=== PATIENT | female | born 1995 | race Caucasian/White ===

== ENCOUNTER 2018-06-14 16:31 | Emergency (ER) | payer BC ==
[2018-06-14] MEDS ORDERED: ONDANSETRON 4 MG/2 ML VIAL IVP ONE ×2 (17:55→19:32)
[2018-06-14] MEDS ORDERED: KETOROLAC 30 MG/1 ML SDV IVP ONE (17:55)
[2018-06-14] MEDS ORDERED: NS 1,000 ML IV ONE (17:55)
--- NOTE | 2018-06-14 18:50 | EDPHY ---
H & P Stated Complaint: luq sharp abd pain/n/diarrhea just got back from [place] Time Seen by Provider: 06/14/18 17:55 HPI/ROS: CHIEF COMPLAINT: Left upper quadrant pain HISTORY OF PRESENT ILLNESS: 22-year-old female presents with left upper quadrant pain. Onset of sharp and stabbing left upper quadrant pain yesterday. The pain is moderate and is associated with nausea. She just return to [place] and had 1 day of diarrhea while in [place]. No current diarrhea and no fever. She also has an upper respiratory infection, including stuffy nose, sore throat and cough. REVIEW OF SYSTEMS: complete 10 point ROS reviewed and is negative except for the noted elements in the HPI - Personal History LMP (Females 10-55): Extended Cycle BCP/Inj Current Tetanus Diphtheria and Acellular Pertussis (TDAP): Yes - Medical/Surgical History Hx Asthma: No Hx Chronic Respiratory Disease: No Hx Diabetes: No Hx Cardiac Disease: No Hx Renal Disease: No Hx Cirrhosis: No Hx Alcoholism: No Hx HIV/AIDS: No Hx Splenectomy or Spleen Trauma: No Other PMH: denies - Social History Smoking Status: Current every day smoker Alcohol Use: Sober Drug Use: None - Physical Exam Exam: General Appearance: Alert, pleasant Eyes: Pupils equal and round, no conjunctival pallor ENT, Mouth: Mucous membranes moist Neck: Normal inspection Respiratory: Lungs are clear to auscultation Cardiovascular: Regular rate and rhythm Gastrointestinal: Abdomen is soft, left upper quadrant tenderness, no peritoneal signs Neurological: A&O, nonfocal exam Skin: Warm and dry Extremities: Normal inspection Psychiatric: Mood and affect normal Constitutional: Initial Vital Signs Temperature (C) 36.5 C 06/14/18 16:57 Heart Rate 120 H 06/14/18 16:57 Respiratory Rate 17 06/14/18 16:57 Blood Pressure 99/63 L 06/14/18 16:57 O2 Sat (%) 96 06/14/18 16:57 O2 Delivery Mode Room Air Allergies/Adverse Reactions: No Known Allergies Allergy (Verified 06/14/18 21:07) Home Medications: Medication Instructions Recorded ALPRAZolam [Xanax 1 MG (*)] 2 mg PO DAILY PRN 06/14/18 Acetaminophen [Tylenol 325mg (*)] 325 mg PO DAILY PRN 06/14/18 Etonogestrel [Nexplanon] 68 mg SQ CONT 06/14/18 Ibuprofen [Motrin (*)] 200 - 400 mg PO DAILY PRN 06/14/18 Medical Decision Making - Diagnostics Imaging Results: Imaging Impressions Abdomen CT 06/14/18 19:20 Impression: 1. Enlarged appendix, with trace periappendiceal stranding, suggesting acute appendicitis. 2. Trace air in the bladder, which is nonspecific and can be seen with infection, however, the bladder is otherwise normal. 3. Additional findings, as above. Findings discussed with Valerie Lloyd M.D., on June 14, 2018 at 2014. E:amm ED Course/Re-evaluation: This patient presents with left upper quadrant pain. The pain is moderate and persistent, associated with decreased appetite. Patient appears uncomfortable. IV normal saline 1 L, Toradol and Zofran given. CT scan of the abdomen pelvis ordered because of persistent pain. CT scan reveals acute appendicitis, results discussed with the patient. Repeat abdominal exam reveals tenderness in the right lower quadrant greater than left upper quadrant. Rocephin and Flagyl IV given. Dr. Bakari Christensen was consulted and will see the patient in the ED. Pt seen by Dr. Christensen, plan to d/c home, f/u in am. Differential Diagnosis: Differential diagnosis includes though it is not limited to appendicitis, cholecystitis, diverticulitis, pyelonephritis, bowel perforation, small bowel obstruction. - Data Points Laboratory Results: Laboratory Results 06/14/18 18:37 06/14/18 18:37 06/14/18 06/14/18 06/14/18 18:37 18:37 18:37 WBC 9.14 10^3/uL 10^3/uL (3.80-9.50) RBC 4.06 10^6/uL L 10^6/uL (4.18-5.33) Hgb 12.6 g/dL g/dL (12.6-16.3) Hct 36.9 % L % (38.0-47.0) MCV 90.9 fL fL (81.5-99.8) MCH 31.0 pg pg (27.9-34.1) MCHC 34.1 g/dL g/dL (32.4-36.7) RDW 11.4 % L % (11.5-15.2) Plt Count 176 10^3/uL 10^3/uL (150-400) MPV 9.3 fL fL (8.7-11.7) Neut % (Auto) 64.0 % % (39.3-74.2) Lymph % (Auto) 28.6 % % (15.0-45.0) [place] % (Auto) 5.1 % % (4.5-13.0) Eos % (Auto) 1.9 % % (0.6-7.6) Baso % (Auto) 0.2 % L % (0.3-1.7) Nucleat RBC Rel Count 0.0 % % (0.0-0.2) Absolute Neuts (auto) 5.85 10^3/uL 10^3/uL (1.70-6.50) Absolute Lymphs (auto) 2.61 10^3/uL 10^3/uL (1.00-3.00) Absolute Monos (auto) 0.47 10^3/uL 10^3/uL (0.30-0.80) Absolute Eos (auto) 0.17 10^3/uL 10^3/uL (0.03-0.40) Absolute Basos (auto) 0.02 10^3/uL 10^3/uL (0.02-0.10) Absolute Nucleated RBC 0.00 10^3/uL 10^3/uL (0-0.01) Immature Gran % 0.2 % % (0.0-1.1) Immature Gran # 0.02 10^3/uL 10^3/uL (0.00-0.10) Sodium 140 mEq/L mEq/L (135-145) Potassium 3.2 mEq/L L mEq/L (3.3-5.0) Chloride 101 mEq/L mEq/L (97-110) Carbon Dioxide 28 mEq/l mEq/l (22-31) Anion Gap 11 mEq/L mEq/L (6-14) BUN 13 mg/dL mg/dL (7-23) Creatinine 0.8 mg/dL mg/dL (0.6-1.0) Estimated GFR > 60 Glucose 110 mg/dL H mg/dL (70-100) Calcium 9.5 mg/dL mg/dL (8.5-10.4) Beta HCG, Qual NEGATIVE Urine Color Urine Appearance Urine pH Ur Specific [place] Urine Protein Urine Ketones Urine Blood Urine Nitrate Urine Bilirubin Urine Urobilinogen Ur Leukocyte Esterase Urine Glucose 06/14/18 16:44 WBC RBC Hgb Hct MCV MCH MCHC RDW Plt Count MPV Neut % (Auto) Lymph % (Auto) [place] % (Auto) Eos % (Auto) Baso % (Auto) Nucleat RBC Rel Count Absolute Neuts (auto) Absolute Lymphs (auto) Absolute Monos (auto) Absolute Eos (auto) Absolute Basos (auto) Absolute Nucleated RBC Immature Gran % Immature Gran # Sodium Potassium Chloride Carbon Dioxide Anion Gap BUN Creatinine Estimated GFR Glucose Calcium Beta HCG, Qual Urine Color YELLOW Urine Appearance MODERATELY TURBID Urine pH 7.0 (5.0-7.5) Ur Specific [place] 1.019 (1.002-1.030) Urine Protein NEGATIVE (NEGATIVE) Urine Ketones NEGATIVE (NEGATIVE) Urine Blood NEGATIVE (NEGATIVE) Urine Nitrate NEGATIVE (NEGATIVE) Urine Bilirubin NEGATIVE (NEGATIVE) Urine Urobilinogen 2.0 EU H EU (0.2-1.0) Ur Leukocyte Esterase NEGATIVE (NEGATIVE) Urine Glucose NEGATIVE (NEGATIVE) Medications Given: Metronidazole/Sodium Chloride (Flagyl 500 Mg (Premix)) 100 mls @ 100 mls/hr IV EDNOW ONE PRN Reason: Protocol Stop: 06/14/18 21:25 Last Admin: 06/14/18 21:16 Dose: 100 mls Discontinued Medications Hydromorphone HCl (Dilaudid) 0.5 mg IVP EDNOW ONE Stop: 06/14/18 19:33 Last Admin: 06/14/18 19:38 Dose: 0.5 mg Sodium Chloride (Ns) 1,000 mls @ 0 mls/hr IV EDNOW ONE; Wide Open PRN Reason: Protocol Stop: 06/14/18 17:56 Last Admin: 06/14/18 18:41 Dose: 1,000 mls Ceftriaxone Sodium/Dextrose (Rocephin 1 Gm (Premix)) 50 mls @ 100 mls/hr IV EDNOW ONE PRN Reason: Protocol Stop: 06/14/18 20:54 Last Admin: 06/14/18 20:37 Dose: 50 mls Ketorolac Tromethamine (Toradol) 30 mg IVP EDNOW ONE Stop: 06/14/18 17:56 Last Admin: 06/14/18 18:42 Dose: 30 mg Ondansetron HCl (Zofran) 4 mg IVP EDNOW ONE Stop: 06/14/18 17:56 Last Admin: 06/14/18 18:42 Dose: 4 mg Ondansetron HCl (Zofran) 4 mg IVP EDNOW ONE Stop: 06/14/18 19:33 Last Admin: 06/14/18 19:37 Dose: 4 mg Departure - Departure Disposition: [facility] Inpatient Acute Clinical Impression: Abdominal pain Qualifiers: Abdominal location: left upper quadrant Qualified Code(s): R10.12 - Left upper quadrant pain Condition: Good
[2018-06-14 19:01] LABS: PLATELET COUNT 176 10^3/uL (150-400)
[2018-06-14] MEDS ORDERED: HYDROmorphONE/DILAUDID 2 MG/ML INJ IVP ONE (19:32)
[2018-06-14] MEDS ORDERED: IOPAMIDOL (ISOVUE-300) 100 ML BTL ONE (19:33)
[2018-06-14] MEDS ORDERED: HYDROmorphONE/DILAUDID 1 MG/ML INJ ONE (19:35)
[2018-06-14] MEDS ORDERED: ACETAMINOPHEN 500 MG TAB PO ONE (21:55)
[2018-06-15] MEDS ORDERED: HYDROmorphONE/DILAUDID 1 MG/ML INJ ONE (03:30)
--- NOTE | 2018-06-15 05:42 | PDGENHP ---
History & Physical Chief Complaint: RLQ pain History of Present Illness: Patient seen in ED last evening with LUQ pain, normal WBC and mildly enlarged appendix. Was recommended to proceed with serial abdominal exams. She represented with migration of symptoms to RLQ. Being admitted for Dx Lap with appendectomy. Full consult note dictated last evening. Pertinent Past, Social, Family History: PMHx - none. PSurgHx - nasal repair. Meds - Nexplanon. NKDA. Relevant Physical Exam: Abd soft, mild RLQ tenderness without rebound or guarding. Cardiorespiratory Assessment: Heart reg. Lungs clear.
--- NOTE | 2018-06-15 05:52 | POSTOPPROG ---
Post Op Note Date of Operation: 06/15/18 Surgeon: Bakari Christensen Anesthesiologist: Derek Davila Anesthesia: GET(General Endotracheal) Pre-op Diagnosis: RLQ pain Post-op Diagnosis: Acute appendicitis Procedure: Dx Lap with appendectomy Inf/Abcess present in the surg proc area at time of surgery?: Yes Depth: Organ Space EBL: Minimal Specimen(s): appendix
[2018-06-15] MEDS ORDERED: BUPIVACAINE/EPI 0.5% 30 ML SDV ONE (06:06)
--- NOTE | 2018-06-15 06:47 | PDANEPAE ---
ANE Past Medical History - Cardiovascular History Hx Hypertension: No Hx Arrhythmias: No Hx Chest Pain: No Hx Coronary Artery / Peripheral Vascular Disease: No Hx CHF / Valvular Disease: No Hx Palpitations: No - Pulmonary History Hx COPD: No Hx Asthma/Reactive Airway Disease: No Hx Recent Upper Respiratory Infection: No Hx Oxygen in Use at Home: No Hx Sleep Apnea: No - Endocrine History Hx Diabetes: No Hypothyroid: No Hyperthyroid: No Obesity: no - Renal History Hx Renal Disorders: No - Liver History Hx Hepatic Disorders: No - Neurological & Psychiatric Hx Hx Neurological and Psychiatric Disorders: No - GI History GERD: no Hx Gastrointestinal Disorders: No - Surgical History Prior Surgeries: cosmetic ANE Review of Systems Review of Systems: - Exercise capacity Exercise capacity: >=4 METS ANE Patient History - Allergies Allergies/Adverse Reactions: No Known Allergies Allergy (Verified 06/15/18 02:39) - Home Medications Home Medications: ALPRAZolam [Xanax 1 MG (*)] 2 mg PO DAILY PRN 06/14/18 [Last Taken 06/14/18] Acetaminophen [Tylenol 325mg (*)] 325 mg PO DAILY PRN 06/14/18 [Last Taken Unknown] Etonogestrel [Nexplanon] 68 mg SQ CONT 06/14/18 [Last Taken Unknown] Ibuprofen [Motrin (*)] 200 - 400 mg PO DAILY PRN 06/14/18 [Last Taken Unknown] - NPO status NPO Since - Liquids (Date): 06/14/18 NPO Since - Liquids (Time): 18:00 NPO Since - Solids (Date): 06/14/18 NPO Since - Solids (Time): 12:00 - Anes Hx Anes Hx: no prior problems - Smoking Hx Smoking Status: Current every day smoker - Alcohol Use Alcohol Use: Sober - Family Anes Hx Family Anes Hx: neg - N/A ANE Labs/Vital Signs - Labs Result Diagrams: 06/14/18 18:37 06/14/18 18:37 - Vital Signs Blood Pressure: 97/63 Heart Rate: 106 Respiratory Rate: 18 O2 Sat (%): 93 Height: 162.56 cm Weight: 52.163 kg ANE Physical Exam - Airway Neck exam: FROM Mallampati Score: Class 1 Mouth exam: normal dental/mouth exam - Pulmonary Pulmonary: no respiratory distress, no rales or rhonchi, clear to auscultation - Cardiovascular Cardiovascular: regular rate and rhythym, no murmur, rub, or gallop - ASA Status ASA Status: I ANE Anesthesia Plan Anesthesia Plan: general endotracheal anesthesia Total IV Anesthesia: No
[2018-06-15] MEDS ORDERED: PROPOFOL 200 MG/20 ML VIAL ONE (06:48)
[2018-06-15] MEDS ORDERED: fentaNYL 100 MCG/2 ML INJ ONE ×2 (06:48→08:13)
[2018-06-15] MEDS ORDERED: DEXAMETHASONE 4 MG/ML VIAL ONE (06:48)
[2018-06-15] MEDS ORDERED: ONDANSETRON 4 MG/2 ML VIAL ONE (06:48)
[2018-06-15] MEDS ORDERED: ROCURONIUM 50 MG/5 ML VIAL ONE (06:49)
[2018-06-15] MEDS ORDERED: SUCCINYLCHOLINE CHLORIDE 200 MG/10 ML SYR IVP ONE (06:50)
[2018-06-15] MEDS ORDERED: LIDOCAINE 2% 5 ML SDV ONE (06:51)
[2018-06-15] MEDS ORDERED: NALOXONE HCL 0.4 MG/ML INJ IVP PRN (07:11)
[2018-06-15] MEDS ORDERED: PHENYLEPHRINE HCL 100 MCG/ML SYR IVP PRN (07:11)
[2018-06-15] MEDS ORDERED: HYDROCODONE/APAP 5/325 TAB PO PRN (07:11)
[2018-06-15] MEDS ORDERED: oxyCODONE IR 5 MG TAB PO PRN (07:11)
[2018-06-15] MEDS ORDERED: ACETAMINOPHEN 500 MG TAB PO PRN (07:11)
[2018-06-15] MEDS ORDERED: PROMETHAZINE HCL 25 MG/ML INJ IVP PRN (07:11)
[2018-06-15] MEDS ORDERED: ONDANSETRON 4 MG/2 ML VIAL IVP PRN (07:11)
[2018-06-15] MEDS ORDERED: fentaNYL 100 MCG/2 ML INJ IVP PRN (07:11)
[2018-06-15] MEDS ORDERED: LR 500 ML IV PRN (07:11)
--- NOTE | 2018-06-15 07:27 | GCON ---
[f rep st] CONSULTATION DATE OF CONSULTATION: 06/14/2018 REASON FOR EVALUATION: Abdominal pain. REQUESTING PHYSICIAN: Valerie Lloyd MD HISTORY OF PRESENT ILLNESS: 22-year-old, healthy college student, presents to the emergency room with a 1-day history of persistent left upper quadrant pain. She had been in [place] for the last 4 days on spring. She describes feeling well during her trip. She described 1 episode of diarrhea while in [place]. Otherwise, no other GI illness. Upon returning to [facility] her left upper quadrant pain persisted throughout the course of the day bringing her into the emergency room this evening. She describes it associated with nausea without emesis. No fevers or chills. Her periods are irregular on Nexplanon. She reports a quasi similar history of similar pain in the past, all self-limited. She denies radiation of pain to her right lower quadrant. She denies voiding complaints. She denies pain with movement. She reports that the car ride was not uncomfortable over bumps. She is currently hungry. ED workup disclosed a normal CBC. CT abdomen was performed, disclosing a borderline enlarged appendix. Surgery has been requested for further recommendations. Upon my arrival with the patient, she admits to persistent left upper quadrant pain as noted above. She denies any right lower quadrant pain. She denies radiation of symptoms and notable improvement of symptoms since receipt of ED analgesics. PAST MEDICAL HISTORY: None. PAST SURGICAL HISTORY: Nasal surgery. MEDICATIONS: Xanax p.r.n. ALLERGIES: No known drug allergies. SOCIAL: She uses E cigarettes. No tobacco. No alcohol. She is present with her boyfriend. PHYSICAL EXAM: VITAL SIGNS: Temperature 36.5, blood pressure 100/70, heart rate 89, respirations 18. GENERAL: Patient is alert, appropriate, comfortable , moving easily. HEENT: Anicteric. No cervical or supraclavicular lymphadenopathy. HEART: Regular without murmurs. LUNGS: Clear bilaterally. ABDOMEN: Soft, nondistended. Mild left upper quadrant tenderness without rebound or guarding. No epigastric tenderness or no right upper quadrant tenderness or Cole sign. No reproducible right lower quadrant tenderness. No Rovsing sign. No obturator sign. No psoas sign. SKIN: Without rashes. EXTREMITIES: Without edema. NEUROLOGIC: Alert and appropriate. LABORATORY DATA: White count 9 with a normal differential, specifically no left shift. Sodium 140, potassium 3.2, chloride 101, CO2 28, BUN 13, creatinine 0.8, glucose 110. test negative. Urinalysis unremarkable. CT images were directly reviewed with on-call radiologist. Mildly enlarged appendix. No gross periappendiceal free fluid. Possible wall hyperemia. No pelvic free fluid. IMPRESSION: 1. Left upper quadrant pain. 2. Abnormal CT with borderline enlarged appendix with a clinical exam not supportive of acute appendicitis at the present time. PLAN: Differential diagnosis discussed with the patient and boyfriend in detail (gastroenteritis versus appendicitis). We discussed while her findings may be group sales representative of early appendicitis, I would favor a watchful waiting with repeat assessment tomorrow morning. If pain continues to persist and/or localize, I would recommend pursuing diagnostic laparoscopy at that time. Rocephin and Flagyl had empirically been provided to the patient prior to my arrival. We discussed the options of inpatient observation versus ED discharge with followup in a.m., which both she and her boyfriend preferred to do. She requested to have dinner prior to leaving, which she was tolerating well. Discharge instructions were explained in detail. /[id number]/MODL MTDD
--- NOTE | 2018-06-15 07:32 | POSTANESTH ---
Post Anesthetic Evaluation Cardiovascular Status: Normal, Stable Respiratory Status: Normal, Stable Level of Consciousness/Mental Status: Mildly Sleepy, Arousable Pain Control: Adequate, Prn Tx Ordered Nausea/Vomiting Control: Adequate, Prn Tx Ordered Complications Possibly Related to Anesthesia: None Noted
[2018-06-15 07:47] VITALS: BP 104/61
== END 2018-06-14 22:34 | disposition still patient (30) ==
LOC: EDBD 16:31 → UNDOADMOB 20:21
PROC: 0DTJ4ZZ Resection of Appendix, Percutaneous Endoscopic Approach (ICD-10-PCS; principal; 2018-06-14)
DX: K35.80 Unspecified acute appendicitis (principal); E86.9 Volume depletion, unspecified; F17.200 Nicotine dependence, unspecified, uncomplicated
CPT/HCPCS: 96365; J0330; J0696; J1100; J1170; J1885; J2405; J2704; J3010; Q9967

== ENCOUNTER 2018-06-15 02:36 | Day surgery (SDC) | payer BC ==
[2018-06-15] MEDS ORDERED: KETOROLAC 15 MG/1 ML SDV IVP ONE (03:13)
[2018-06-15] MEDS ORDERED: NS 1,000 ML IV ONE (03:22)
[2018-06-15] MEDS ORDERED: HYDROmorphONE/DILAUDID 2 MG/ML INJ IVP ONE ×2 (03:27→04:23)
[2018-06-15 03:35] LABS: PLATELET COUNT 155 10^3/uL (150-400)
[2018-06-15] MEDS ORDERED: ONDANSETRON 4 MG/2 ML VIAL IVP ONE ×2 (03:37→03:44)
--- NOTE | 2018-06-15 03:40 | EDPHY ---
H & P Stated Complaint: Abdominal Pain Time Seen by Provider: 06/15/18 03:29 HPI/ROS: HPI The patient presents with ongoing abdominal pain after discharge from the emergency department about 6 hr ago. While in the emergency department she ate a meal of sushi. About 45 min later, she developed worsening pain in the right lower quadrant which she describes as sharp and stabbing. She says the pain has been continuous. She denies any nausea or vomiting. She has not had a fever.. REVIEW OF SYSTEMS 10 systems were reviewed and negative with the exception of the elements mentioned in the history of present illness. PMHx: History of anxiety Soc Hx: Here with her partner, smokes cigarettes FHx: PHYSICAL General Appearance: Alert, no distress Eyes: Pupils equal and round no pallor or injection ENT, Mouth: Mucous membranes moist Respiratory: There are no retractions, lungs are clear to auscultation Cardiovascular: Regular rate and rhythm Gastrointestinal: Abdomen is soft and tender in the left lower quadrant, no masses, bowel sounds normal Neurological: A&O, moves all extremities Skin: Warm and dry, no rashes Musculoskeletal: Neck is supple non tender Extremities: symmetrical, full range of motion Psychiatric: Patient is oriented X 3, there is no agitation Source: Patient Exam Limitations: No limitations - Personal History LMP (Females 10-55): Unknown Current Tetanus/Diphtheria Vaccine: Yes Current Tetanus Diphtheria and Acellular Pertussis (TDAP): Yes - Medical/Surgical History Hx Asthma: No Hx Chronic Respiratory Disease: No Hx Diabetes: No Hx Cardiac Disease: No Hx Renal Disease: No Hx Cirrhosis: No Hx Alcoholism: No Hx HIV/AIDS: No Hx Splenectomy or Spleen Trauma: No Other PMH: anxiety - Social History Smoking Status: Current every day smoker Constitutional: Initial Vital Signs Temperature (C) 36.6 C 06/15/18 02:40 Heart Rate 89 06/15/18 02:40 Respiratory Rate 16 06/15/18 02:40 Blood Pressure 107/64 06/15/18 02:40 O2 Sat (%) 96 06/15/18 02:40 O2 Delivery Mode Room Air Allergies/Adverse Reactions: No Known Allergies Allergy (Verified 06/15/18 02:39) Home Medications: Medication Instructions Recorded ALPRAZolam [Xanax 1 MG (*)] 2 mg PO DAILY PRN 06/14/18 Acetaminophen [Tylenol 325mg (*)] 325 mg PO DAILY PRN 06/14/18 Etonogestrel [Nexplanon] 68 mg SQ CONT 06/14/18 Ibuprofen [Motrin (*)] 200 - 400 mg PO DAILY PRN 06/14/18 Hydrocodone/APAP 5/325 [[place] 1 - 2 tab PO Q4H PRN #15 tab 06/15/18 5/325 (*)] Ondansetron Odt [Zofran Odt] 4 mg PO Q4 PRN #10 tab 06/15/18 Medical Decision Making Differential Diagnosis: 22-year-old female read presents with right lower quadrant abdominal pain. She was seen last night and had a CT scan which showed possible early appendicitis, she felt well enough to return home and did, however her pain recurred after eating. She has not had vomiting or fever. I repeated her labs here in their normal. I have treated her with IV fluids, Toradol, Dilaudid. I have consulted with Dr. Christensen who has seen her last night. He will take her to the operating room. Differential diagnoses considered include appendicitis, musculoskeletal pain, ovarian cyst. - Data Points Laboratory Results: Laboratory Results 06/15/18 03:20 06/15/18 03:20 06/15/18 06/15/18 03:20 03:20 WBC 7.02 10^3/uL 10^3/uL (3.80-9.50) RBC 3.60 10^6/uL L 10^6/uL (4.18-5.33) Hgb 11.2 g/dL L g/dL (12.6-16.3) Hct 33.8 % L % (38.0-47.0) MCV 93.9 fL fL (81.5-99.8) MCH 31.1 pg pg (27.9-34.1) MCHC 33.1 g/dL g/dL (32.4-36.7) RDW 11.2 % L % (11.5-15.2) Plt Count 155 10^3/uL 10^3/uL (150-400) MPV 9.3 fL fL (8.7-11.7) Neut % (Auto) 57.5 % % (39.3-74.2) Lymph % (Auto) 32.5 % % (15.0-45.0) [place] % (Auto) 7.3 % % (4.5-13.0) Eos % (Auto) 2.4 % % (0.6-7.6) Baso % (Auto) 0.3 % % (0.3-1.7) Nucleat RBC Rel Count 0.0 % % (0.0-0.2) Absolute Neuts (auto) 4.04 10^3/uL 10^3/uL (1.70-6.50) Absolute Lymphs (auto) 2.28 10^3/uL 10^3/uL (1.00-3.00) Absolute Monos (auto) 0.51 10^3/uL 10^3/uL (0.30-0.80) Absolute Eos (auto) 0.17 10^3/uL 10^3/uL (0.03-0.40) Absolute Basos (auto) 0.02 10^3/uL 10^3/uL (0.02-0.10) Absolute Nucleated RBC 0.00 10^3/uL 10^3/uL (0-0.01) Immature Gran % 0.0 % % (0.0-1.1) Immature Gran # 0.00 10^3/uL 10^3/uL (0.00-0.10) Sodium 140 mEq/L mEq/L (135-145) Potassium 3.6 mEq/L mEq/L (3.5-5.2) Chloride 104 mEq/L mEq/L (97-110) Carbon Dioxide 27 mEq/l mEq/l (22-31) Anion Gap 9 mEq/L mEq/L (6-14) BUN 12 mg/dL mg/dL (7-23) Creatinine 0.8 mg/dL mg/dL (0.6-1.0) Estimated GFR > 60 Glucose 85 mg/dL mg/dL (70-100) Calcium 9.0 mg/dL mg/dL (8.5-10.4) Total Bilirubin 0.3 mg/dL mg/dL (0.1-1.4) AST 21 IU/L IU/L (14-46) ALT 22 IU/L IU/L (9-52) Alkaline Phosphatase 77 IU/L IU/L (38-126) Total Protein 5.9 g/dL L g/dL (6.3-8.2) Albumin 3.7 g/dL g/dL (3.5-5.0) Medications Given: Discontinued Medications Hydromorphone HCl (Dilaudid) 0.5 mg IVP EDNOW ONE Stop: 06/15/18 03:28 Last Admin: 06/15/18 03:31 Dose: 0.5 mg Hydromorphone HCl (Dilaudid) 0.5 mg IVP EDNOW ONE Stop: 06/15/18 04:24 Last Admin: 06/15/18 04:24 Dose: 0.5 mg Sodium Chloride (Ns) 1,000 mls @ 0 mls/hr IV EDNOW ONE; Wide Open PRN Reason: Protocol Stop: 06/15/18 03:23 Last Admin: 06/15/18 03:22 Dose: 1,000 mls Ketorolac Tromethamine (Toradol) 15 mg IVP ONCE ONE Stop: 06/15/18 03:14 Last Admin: 06/15/18 03:21 Dose: 15 mg Ondansetron HCl (Zofran) 4 mg IVP EDNOW ONE Stop: 06/15/18 03:38 Last Admin: 06/15/18 03:46 Dose: 4 mg Ondansetron HCl (Zofran) 4 mg IVP EDNOW ONE Stop: 06/15/18 03:45 Last Admin: 06/15/18 03:50 Dose: Not Given Departure - Departure Disposition: [facility] Inpatient Acute Clinical Impression: Acute appendicitis Qualifiers: Acute appendicitis type: with localized peritonitis Appendicitis gangrene presence: without gangrene Appendicitis perforation presence: without perforation Appendicitis abscess presence: without abscess Qualified Code(s): K35.30 - Acute appendicitis with localized peritonitis, without perforation or gangrene Condition: Fair Referrals: NONE *PRIMARY CARE P,. [Primary Care Provider] - As per Instructions
[2018-06-15] MEDS ORDERED: HYDROCODONE/APAP 5/325 TAB PO PRN (07:54)
[2018-06-15] MEDS ORDERED: HYDROmorphONE/DILAUDID 1 MG/ML INJ IVP PRN (07:54)
[2018-06-15] MEDS ORDERED: ACETAMINOPHEN 325 MG TAB PO PRN (07:54)
--- NOTE | 2018-06-15 08:42 | GOP ---
[f rep st] OPERATIVE REPORT DATE OF OPERATION: 06/15/2018 SURGEON: Bakari Christensen MD ANESTHESIA: General endotracheal. ANESTHESIOLOGIST: David Davila DO PREOPERATIVE DIAGNOSIS: Right lower quadrant pain. POSTOPERATIVE DIAGNOSIS: Appendicitis. PROCEDURE PERFORMED: Laparoscopic appendectomy. FINDINGS: Early appendicitis changes. INDICATIONS: 22-year-old female with a 1-day history of abdominal pain. She is undergoing a diagnostic laparoscopy with appendectomy, given heightened suspicion for appendicitis. Risks and benefits were explained of bleeding, infection, open conversion, as well as alternative diagnoses. All questions were answered. She desires to proceed. DESCRIPTION OF PROCEDURE: General anesthesia was induced. The abdomen was injected with 0.5% Marcaine with epinephrine. A curvilinear infraumbilical incision was created. The midline fascia was opened vertically. A 10 mm trocar was placed under direct visualization. Two additional 5 mm lower midline ports were inserted. The appendix was acutely thickened and hyperemic. No suppuration or perforation was present. The mesoappendix was divided with the Harmonic Scalpel. The base was transected flush with the cecum with an endoscopic MARICEL stapler. The specimen was brought through the umbilical port site intact using EndoCatch pouch. Satisfactory hemostasis was assured. Trocars were removed under direct visualization. The infraumbilical midline fascia was closed with running Vicryl suture. The wounds were closed with Monocryl suture, followed by Dermabond. The patient was taken to recovery uneventfully. /[id number]/MODL MTDD
[2018-06-15] MEDS ORDERED: OXYCODONE/APAP 5/325 TAB ONE (08:45)
[2018-06-15] MEDS ORDERED: fentaNYL 100 MCG/2 ML INJ IVP ONE (09:00)
[2018-06-15] MEDS ORDERED: OXYCODONE/APAP 5/325 TAB PO ONE (09:00)
[2018-06-15 09:27] VITALS: BP 101/69
[2018-06-15] MEDS ORDERED: KETOROLAC 15 MG/1 ML SDV IVP SCH (12:00)
== END 2018-06-15 09:21 | disposition home or self-care (01) ==
LOC: FSGY 06:03 → UNDOADMOB 07:54 → F3E 07:54 → UNDODISOB 09:21 → FSGY 09:21
PROVIDERS: ATTEND Surgery
PROC: 0DTJ4ZZ Resection of Appendix, Percutaneous Endoscopic Approach (ICD-10-PCS; principal; 2018-06-15 07:00)
DX: K35.80 Unspecified acute appendicitis (principal); F41.9 Anxiety disorder, unspecified; F17.210 Nicotine dependence, cigarettes, uncomplicated
CPT/HCPCS: 96374; J1170; J1885; J2405